=== PATIENT | female | born 2000 | race Caucasian/White ===

== ENCOUNTER 2021-07-10 10:33 | Observation (INO) | payer OTHER ==
[~2021-07-10 10:33] MED LIST: Iopamidol-370 76% 500 ML 1 ML ONE
[2021-07-10] MEDS ORDERED: Ketorolac Tromethamine 30 MG/ML VIAL ONE (10:56)
[2021-07-10 11:15] LABS: INR-International Normal Ratio 1.1; PTT 25.7 sec (22.9-36.1); Prothrombin Time 14.3 sec (12.0-14.7)
[2021-07-10 11:16] LABS: Hemoglobin 14.2 g/dL (12.0-16.0); Mean Corpuscular Hemoglobin 29.6 pg (25.0-35.0); Mean Corpuscular Volume 87.2 fL (78.0-98.0); Red Blood Cell (RBC) Count 4.78 mill/uL (4.00-5.20)
[2021-07-10 11:31] LABS: BHCG - Serum Negative (NEGATIVE); Pregs Control Background? CLEAR/WHITE (CLR/WHITE); Pregs Control Bar Appear? YES (CONTROL BAR)
[2021-07-10 11:38] LABS: Lymphocytes 4 % (28-48); MDiff Complete? YES; Monocytes 6 % (0-4); Neutrophil 90 % (31-61); Platelet Count 262 thou/uL (130-400); Platelet Morphology Comment Appears Adequate; White Blood Cell (WBC) Count 22.5 thou/uL (4.8-10.8)
[2021-07-10] MEDS ORDERED: Ondansetron PF 4 MG/2 ML Vial IVP PRN (13:15)
[2021-07-10] MEDS ORDERED: HYDROcodone/Acetaminophen 5/325 mg Tablet PO PRN (13:15)
[2021-07-10 14:15] VITALS: BMI 19.5
[2021-07-10] MEDS: Ampicillin/Sulbactam 3 GM in Sodium Chloride 0.9% 100 ML IVPB SCH ×2 (14:19→20:35)
[2021-07-10] MEDS: methylPREDNISolone Sod Succ 40 MG VIAL IVP SCH ×2 (15:08→20:35)
[2021-07-10 16:02] LABS: Albumin 3.8 g/dL (3.5-5.0)
[2021-07-10 16:03] LABS: Chloride 105 mmol/L (98-107); Sodium 136 mmol/L (136-145)
[2021-07-10 16:04] LABS: Calcium 9.3 mg/dL (7.8-10.44)
[2021-07-10 16:05] LABS: Globulin 3.5 g/dL (2.4-3.5); Glucose 111 mg/dL (70-105); Protein, Total 7.3 g/dL (6.0-8.3)
[2021-07-10 16:06] LABS: Anion Gap 14 mmol/L (10-20); Carbon Dioxide 21 mmol/L (22-29)
[2021-07-10 16:07] LABS: Bilirubin, Total 0.6 mg/dL (0.2-1.2)
[2021-07-10 16:08] LABS: Alkaline Phosphatase 83 U/L (40-100); Calc. Creatinine Clearance 108 mL/min (70-130)
[2021-07-10 16:09] LABS: BUN (Urea Nitrogen) 7 mg/dL (7.0-18.7)
[2021-07-10 16:10] LABS: AST (SGOT) 15 U/L (5-34)
[2021-07-10 16:11] LABS: ALT (SGPT) 11 U/L (8-55)
[2021-07-10 21:16] LABS: SARS-CoV-2 PCR by NAA Not Detected (NotDetected)
[2021-07-11] MEDS: Ampicillin/Sulbactam 3 GM in Sodium Chloride 0.9% 100 ML IVPB SCH ×2 (01:42→08:16)
[2021-07-11] MEDS: methylPREDNISolone Sod Succ 40 MG VIAL IVP SCH ×2 (01:42→08:15)
[2021-07-11 04:59] LABS: Band 3 % (5-11); Hemoglobin 11.8 g/dL (12.0-16.0); Lymphocytes 12 % (28-48); MDiff Complete? YES; Mean Corpuscular HGB CONC 31.9 g/dL (32.0-36.0); Mean Corpuscular Volume 87.8 fL (78.0-98.0); Mean Platelet Volume 9.3 fL (7.4-10.4); Neutrophil 85 % (31-61); Platelet Count 245 thou/uL (130-400); Platelet Morphology Comment Appears Adequate; RBC Distribution Width 12.7 % (11.5-14.5); RBC Morphology Normal; Red Blood Cell (RBC) Count 4.22 mill/uL (4.00-5.20); White Blood Cell (WBC) Count 26.2 thou/uL (4.8-10.8)
[2021-07-11 05:11] LABS: Anion Gap 11 mmol/L (10-20); BUN (Urea Nitrogen) 12 mg/dL (7.0-18.7); Calc. Creatinine Clearance 113 mL/min (70-130); Calcium 9.5 mg/dL (7.8-10.44); Carbon Dioxide 24 mmol/L (22-29); Chloride 107 mmol/L (98-107); Glucose 164 mg/dL (70-105); Potassium 4.9 mmol/L (3.5-5.1); Sodium 137 mmol/L (136-145)
[2021-07-11 08:55] VITALS: BP 101/57; TEMP 97.5
[2021-07-11] MEDS ORDERED: Enoxaparin Sodium 40 MG/0.4 ML SYRINGE SC SCH (09:00)
[2021-07-11 10:13] LABS: Bacteria/HPF None Seen HPF (None Seen); Bilirubin Negative (Negative); Blood, Urine Negative (Negative); Clarity Clear (Clear); Glucose, Urine (Dipstick) Greater than 1000 mg/dL (Negative); Ketone, Urine 10 mg/dL (Negative); Leukocyte 25 Leu/uL (Negative); Nitrite Negative (Negative); Protein, Urine (Dipstick) 30 mg/dL (Neg-Trace); RBC/HPF 0-3 HPF (0-3); Specific Gravity, Urine 1.045 (1.002-1.036); Urobilinogen Normal mg/dL (Less than 2)
== END 2021-07-11 12:22 | disposition home or self-care (01) ==
LOC: ERS 10:33 → ONC 13:04
PROVIDERS: ADMIT Hospitalist; ATTEND Hospitalist
DX: A41.9 Sepsis, unspecified organism (principal); J36 Peritonsillar abscess; Z20.822 Contact with and (suspected) exposure to COVID-19
CPT/HCPCS: 36415; 70491; 80048; 80053; 81001; 83605; 84703; 85025; 85610; 85730; 87040; 94760; 96367; 96375; 96376; G0378; J0295; J1885; J2920; J3490; Q9967; U0003; U0005